=== PATIENT | male | born 1995 | race Caucasian/White ===

== ENCOUNTER → 2019-07-15 16:17 | Outpatient (BNVA) | payer OTHER, SELFPAY | PROVIDERS: Family Provider Family Medicine; PCP Family Medicine; Visit Provider Nurse Practitioner | DX: R11.2 Nausea with vomiting, unspecified (principal); R50.9 Fever, unspecified; K52.9 Noninfective gastroenteritis and colitis, unspecified | CPT/HCPCS: 87804 ==

== ENCOUNTER → 2019-11-12 15:45 | Outpatient (BNVA) | payer OTHER, SELFPAY | PROVIDERS: Family Provider Family Medicine; PCP Family Medicine; Visit Provider Nurse Practitioner Family | DX: J02.8 Acute pharyngitis due to other specified organisms (principal); B96.89 Other specified bacterial agents as the cause of diseases classified elsewhere | CPT/HCPCS: 87071; 87880 ==